=== PATIENT | male | born 1930 | race Caucasian/White ===

== ENCOUNTER 2017-02-27 16:50 | Emergency (ER) | payer MEDICARE, OTHER ==
[2017-02-27 16:58] VITALS: BP 134/89
--- NOTE | 2017-02-27 17:41 | UC ---
Lower Extremity/Ankle HPI - HPI Summary HPI Summary: HAS CALLOUSES, BUNIONS, AND FUNGAL TOENAIL. ONE WEEK AGO DEVELOPED BLOOD BLISTER ON RIGHT GREAT TOE. BLISTER IS CAUSING TENDERNESS. WOULD LIKE PODIATRY REFERRAL LOCALLY FOR CALLUSES AND BUNIONS. TETANUS WAS 3 YRS AGO. . - History of Current Complaint Chief Complaint: UCLowerExtremity Stated Complaint: FOOT COMPLAINT Time Seen by Provider: 02/27/17 16:58 Hx Obtained From: Patient, Family/Spring Bender Onset/Duration: Gradual Onset, Lasting Weeks, Still Present, Worse Since - TWO DAYS Severity Initially: Mild Severity Currently: Mild Aggravating Factor(s): Standing, Ambulation Able to Bear Weight: Yes - Risk Factors Gout Risk Factors: Age Over 40, Male Septic Arthritis Risk Factor: Negative - Allergies/Home Medications Allergies/Adverse Reactions: Allergies Allergy/AdvReac Type Severity Reaction Status Date / Time Sulfa Antibiotics Allergy Hives Verified 02/27/17 16:58 PMH/Surg Hx/FS Hx/Imm Hx Previously Healthy: Yes - Surgical History Surgical History: Yes Surgery Procedure, Year, and Place: Cardiac stents x4. B.L cataract surgery, left leg filter for blood clot. Abdominal aortic aneuryrsm, Umbilical hernia. Prostatectomy. shoulder. appendix - Family History Known Family History: Positive: Cardiac Disease - Social History Occupation: Retired Lives: With Family Alcohol Use: Occasionally Substance Use Type: None Smoking Status (MU): Former Smoker Type: Cigarettes Amount Used/How Often: 1 ppd Length of Time of Smoking/Using Tobacco: 15-20 years Have You Smoked in the Last Year: No When Did the Patient Quit Smoking/Using Tobacco: 15 yrs ago - Immunization History Most Recent Influenza Vaccination: season Review of Systems Constitutional: Negative Skin: Other - BLOOD BLISTER >1WK OLD LEFT LATERAL GREAT TOE Eyes: Negative ENT: Negative Respiratory: Negative Cardiovascular: Negative Gastrointestinal: Negative Genitourinary: Negative Motor: Negative Neurovascular: Negative Musculoskeletal: Negative Neurological: Negative Psychological: Negative All Other Systems Reviewed And Are Negative: Yes Physical Exam Triage Information Reviewed: Yes Appearance: Well-Appearing, No Pain Distress, Well-Nourished Vital Signs: Initial Vital Signs Temp 97.0 F 02/27/17 16:52 Pulse 104 02/27/17 16:52 Resp 18 02/27/17 16:52 BP 134/89 02/27/17 16:52 Pulse Ox 95 02/27/17 16:52 Vital Signs Reviewed: Yes Eye Exam: Normal ENT Exam: Normal Dental Exam: Normal Neck exam: Normal Neck: Positive: Supple Respiratory Exam: Normal Respiratory: Positive: Chest non-tender, Lungs clear, Normal breath sounds, No respiratory distress Cardiovascular Exam: Normal Cardiovascular: Positive: RRR, No Murmur Abdominal Exam: Normal Musculoskeletal Exam: Normal Musculoskeletal: Positive: Strength Intact Neurological Exam: Normal Psychological Exam: Normal Skin: Positive: Other - INDURATED 2CM X 0.5CM BLOOD BLISTER >1WK OLD LEFT LATERAL GREAT TOE Lower Extremity Course/Dx - Differential Dx/Diagnosis Differential Diagnosis/HQI/PQRI: Gout, Sprain, Strain, Other - CALLOUSES, ONYCHOMYCOSIS; CELLULITIS, GOUT. Provider Diagnoses: INDURATED 2CM X 0.5CM BLOOD BLISTER >1WK OLD LEFT LATERAL GREAT TOE Discharge - Discharge Plan Condition: Stable Disposition: HOME Patient Education Materials: Blister (ED), Hematoma (ED) Referrals: Cristino Matias MD [Primary Care Provider] - Chilo Keyes DPM [Doctor of Podiatric Medicine] - Images Feet (Multiple View): 1 - INDURATED 2CM X 0.5CM BLOOD BLISTER >1WK OLD LEFT LATERAL GREAT TOE
--- NOTE | 2017-03-04 08:43 | UC ---
Progress - Progress Note Progress Note: CALL PATIENT. WOUND CX (-). F/U PCP IF WORSE.
== END 2017-02-27 17:43 | disposition home or self-care (01) ==
LOC: UCEAST 16:50
DX: S90.422A Blister (nonthermal), left great toe, initial encounter (principal); X58.XXXA Exposure to other specified factors, initial encounter; Y93.9 Activity, unspecified; Y92.9 Unspecified place or not applicable; Z95.5 Presence of coronary angioplasty implant and graft; Z98.42 Cataract extraction status, left eye; Z98.41 Cataract extraction status, right eye; Z90.79 Acquired absence of other genital organ(s); Z88.2 Allergy status to sulfonamides; Z87.891 Personal history of nicotine dependence
CPT/HCPCS: 10060; 87070; 87077; 87205; 87640; 87641; 99212; G0463

== ENCOUNTER 2018-01-15 12:48 | Emergency (ER) | payer MEDICARE, OTHER ==
[2018-01-15 13:47] VITALS: BP 123/67
--- NOTE | 2018-01-15 15:40 | UC ---
Hand/Wrist HPI - HPI Summary HPI Summary: C/O right hand redness, swelling and warm. [place] 2nd and 3rd knuckles were sore first. - History Of Current Complaint Chief Complaint: UCUpperExtremity Stated Complaint: RT HAND SWELLING Time Seen by Provider: 01/15/18 15:20 Hx Obtained From: Patient Onset/Duration: Sudden Onset, Lasting Weeks - 1, Worse Since - onset Severity Initially: Mild Severity Currently: Mild Pain Intensity: 3 Character Of Pain: Dull, Aching Aggravating Factor(s): Movement Associated Signs And Symptoms: Positive: Swelling, Redness. Negative: Bruising , Fever, Weakness, Numbness/Tingling Related History: Dominant Hand Right - Allergies/Home Medications Allergies/Adverse Reactions: Allergies Allergy/AdvReac Type Severity Reaction Status Date / Time Sulfa (Sulfonamide Allergy Hives Verified 01/15/18 13:48 Antibiotics) Home Medications: Home Medications Budesonide/Formote 80/4.5(NF) [Symbicort 80/4.5 (NF)] 1 puff INH DAILY 01/15/18 [History Confirmed 01/15/18] PMH/Surg Hx/FS Hx/Imm Hx Cardiovascular History: Cardiac Disease, Hypertension - Surgical History Surgical History: Yes Surgery Procedure, Year, and Place: Cardiac stents x4. B.L cataract surgery, left leg filter for blood clot. Abdominal aortic aneuryrsm, Umbilical hernia. Prostatectomy. shoulder. appendix - Family History Known Family History: Positive: Cardiac Disease Negative: Diabetes - Social History Occupation: Retired Lives: With Family Alcohol Use: Occasionally Substance Use Type: None Smoking Status (MU): Former Smoker Type: Cigarettes Amount Used/How Often: 1 ppd Length of Time of Smoking/Using Tobacco: 15-20 years Have You Smoked in the Last Year: No When Did the Patient Quit Smoking/Using Tobacco: 15 yrs ago - Immunization History Most Recent Influenza Vaccination: season Review of Systems Musculoskeletal: Arthralgia - right hand over the MCP's Is Patient Immunocompromised?: No All Other Systems Reviewed And Are Negative: Yes Physical Exam Triage Information Reviewed: Yes Appearance: Well-Appearing, No Pain Distress, Well-Nourished Vital Signs: Initial Vital Signs Temp 98.1 F 01/15/18 13:42 Pulse 70 01/15/18 13:42 Resp 19 07/04/18 13:42 BP 123/67 01/15/18 13:42 Pulse Ox 98 01/15/18 13:42 Vital Signs Reviewed: Yes Eyes: Positive: Conjunctiva Clear Neck exam: Normal Respiratory Exam: Normal Cardiovascular Exam: Normal Musculoskeletal: Positive: 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 Neurological Exam: Normal Psychological Exam: Normal Skin Exam: Normal Hand/Wrist Course/Dx - Differential Dx/Diagnosis Differential Diagnosis/HQI/PQRI: Cellulitis, Contusion, Gout, Infection Provider Diagnoses: Gout right hand. R/O cellulitis Discharge - Sign-Out/Discharge Documenting (check all that apply): Discharge/Admit/Transfer - Discharge Plan Condition: Stable Disposition: HOME Prescriptions: Cephalexin CAP* [Keflex 500 CAP*] 500 mg PO QID #28 cap Colchicine [Mitigare] 0.6 mg PO BID #60 capsule Patient Education Materials: Gout (ED), Colchicine (By mouth), Cellulitis (ED) , Cephalexin (By mouth) Referrals: Cristino Matias MD [Primary Care Provider] - 5 Days (Recheck on the hand.) - Billing Disposition and Condition Condition: STABLE Disposition: Home
== END 2018-01-15 16:00 | disposition home or self-care (01) ==
LOC: UCCORT 12:48
DX: M10.9 Gout, unspecified (principal); Z88.2 Allergy status to sulfonamides; I10 Essential (primary) hypertension; Z87.891 Personal history of nicotine dependence
CPT/HCPCS: 99212; G0463

== ENCOUNTER 2018-12-01 15:05 | Emergency (ER) | payer MEDICARE ==
[2018-12-01 15:45] VITALS: BP 126/65
--- NOTE | 2018-12-01 16:00 | UC ---
Elbow Pain - HPI Summary HPI Summary: 88 yo male awoke a cough of giancarlo ago with left elbow pain It is swollen and warm no remembered injury He is right handed Can't put elbow on arm rest or table without extreme pain - History of Current Complaint Chief Complaint: UCGeneralIllness Stated Complaint: LEFT ELBOW PAIN Time Seen by Provider: 12/01/18 15:46 Hx Obtained From: Patient Onset/Duration: Days Severity Initially: Mild Severity Currently: Mild Pain Intensity: 1 Pain Scale Used: 0-10 Numeric Location Of Pain: Is Discrete @ - olecranon Character: Aching Aggravating Factor(s): Other - touch Alleviating Factor(s): Rest Associated Signs And Symptoms: Positive: Swelling, Redness - Allergies/Home Medications Allergies/Adverse Reactions: Allergies Allergy/AdvReac Type Severity Reaction Status Date / Time Sulfa (Sulfonamide Allergy Hives Verified 12/01/18 15:36 Antibiotics) Home Medications: Home Medications Albuterol HFA INHALER* [Ventolin HFA Inhaler*] 2 puff INH Q4H PRN 12/01/18 [ History Confirmed 12/01/18] Alendronate (NF) [Fosamax (NF)] 70 mg PO Q30D 12/01/18 [History Confirmed ] Allopurinol TAB* [Zyloprim 100 MG TAB*] 100 mg PO DAILY 12/01/18 [History Confirmed 12/01/18] Ascorbic Acid TAB* [Vitamin C TAB*] 1,000 mg PO DAILY 12/01/18 [History Confirmed 12/01/18] Atorvastatin* [Lipitor*] 40 mg PO DAILY 12/01/18 [History Confirmed 12/01/18] Brimonid/Timolol 0.2/0.5%(NF) [Combigan 0.2/0.5% (NF)] 1 drop BOTH EYES BID [History Confirmed 12/01/18] Budesonide/Formote 80/4.5(NF) [Symbicort 80/4.5 (NF)] 2 puff INH BID 12/01/18 [ History Confirmed 12/01/18] Calcium Citrate TAB* [Citracal TAB*] 600 mg PO BID 12/01/18 [History Confirmed 12/01/18] Cholecalciferol TAB* [Vitamin D TAB*] 400 unit PO DAILY 12/01/18 [History Confirmed 12/01/18] Colchicine* [Colcrys*] 0.6 mg PO BID 12/01/18 [History Confirmed 12/01/18] Dorzolamide 2% OPTH (NF) [Trusopt 2% OPTH (NF)] 1 drop BOTH EYES BID 12/01/18 [ History Confirmed 12/01/18] Ferrous Sulfate TAB* 325 mg PO BID 12/01/18 [History Confirmed 12/01/18] Furosemide TAB* [Lasix TAB*] 80 mg PO DAILY 12/01/18 [History Confirmed 12/01/18 ] Levothyroxine TAB* [Synthroid TAB*] 175 mcg PO 0600 12/01/18 [History Confirmed 12/01/18] Lisinopril TAB* [Prinivil TAB*] 20 mg PO DAILY 12/01/18 [History Confirmed 12/01] PARoxetine HCL TAB* [Paxil TAB*] 20 mg PO DAILY 12/01/18 [History Confirmed ] Potassium Chlor TAB* [Klor Con ER TAB*] 20 meq PO BID 12/01/18 [History Confirmed 12/01/18] Selenium (NF) 200 mcg PO DAILY 12/01/18 [History Confirmed 12/01/18] Vitamin THERAPEUTIC TAB* [Theragran TAB*] 1 tab PO DAILY 12/01/18 [History Confirmed 12/01/18] amLODIPine TAB* [Norvasc 5 mg TAB*] 10 mg PO DAILY 12/01/18 [History Confirmed 12/01/18] PMH/Surg Hx/FS Hx/Imm Hx Previously Healthy: Yes Endocrine History: Dyslipidemia Cardiovascular History: Cardiac Disease, Hypertension - Surgical History Surgical History: Yes Surgery Procedure, Year, and Place: Cardiac stents x4. B.L cataract surgery, left leg filter for blood clot. Abdominal aortic aneuryrsm, Umbilical hernia. Prostatectomy. shoulder. appendix - Family History Known Family History: Positive: Cardiac Disease Negative: Diabetes - Social History Alcohol Use: None Substance Use Type: None Smoking Status (MU): Former Smoker Type: Cigarettes Amount Used/How Often: 1 ppd Length of Time of Smoking/Using Tobacco: 15-20 years Have You Smoked in the Last Year: No When Did the Patient Quit Smoking/Using Tobacco: 15 yrs ago - Immunization History Most Recent Influenza Vaccination: season Review of Systems All Other Systems Reviewed And Are Negative: Yes Constitutional: Positive: Negative Skin: Positive: Negative Eyes: Positive: Negative ENT: Positive: Negative Respiratory: Positive: Negative Cardiovascular: Positive: Negative Gastrointestinal: Positive: Negative Genitourinary: Positive: Negative Motor: Positive: Negative Neurovascular: Positive: Negative Musculoskeletal: Positive: Arthralgia - left elbow Neurological: Positive: Negative Psychological: Positive: Negative Physical Exam Triage Information Reviewed: Yes Appearance: Well-Appearing, No Pain Distress, Well-Nourished Vital Signs: Initial Vital Signs Temp 98.5 F 12/01/18 15:32 Pulse 85 12/01/18 15:32 Resp 18 12/01/18 15:32 BP 126/65 12/01/18 15:32 Pulse Ox 98 12/01/18 15:32 Vital Signs Reviewed: Yes Eyes: Positive: Conjunctiva Clear ENT: Negative: Hearing grossly normal - bilat Hearing Aids, Nasal congestion, Nasal drainage, Trismus, Muffled voice Neck: Positive: Supple, Nontender Respiratory: Positive: Lungs clear, Normal breath sounds, No respiratory distress Cardiovascular: Positive: RRR. Negative: No Murmur Musculoskeletal: Positive: Edema @ - over olecranon, warm Neurological: Positive: Alert Psychological Exam: Normal Skin Exam: Normal Diagnostics - Radiology No standard instances Radiology Interpretation Completed By: Radiologist Summary of Radiographic Findings: left ant fat pad Elbow Pain Course/Dx - Differential Dx/Diagnosis Provider Diagnosis: Olecranon bursitis of left elbow Discharge - Sign-Out/Discharge Documenting (check all that apply): Patient Departure All imaging exams completed and their final reports reviewed: Yes - Discharge Plan Condition: Stable Disposition: HOME Prescriptions: Cephalexin CAP* [Keflex CAP*] 500 mg PO QID #28 cap Patient Education Materials: Elbow Bursitis (ED) Referrals: Vinay Martínez MD [Medical Doctor] - As Soon As Possible Additional Instructions: to ER for new or worsening symptoms - Billing Disposition and Condition Condition: STABLE Disposition: Home
== END 2018-12-01 16:53 | disposition home or self-care (01) ==
LOC: UCCORT 15:05
DX: M70.22 Olecranon bursitis, left elbow (principal); E78.5 Hyperlipidemia, unspecified; I10 Essential (primary) hypertension; Z79.899 Other long term (current) drug therapy; Z88.2 Allergy status to sulfonamides; Z87.891 Personal history of nicotine dependence; Z95.5 Presence of coronary angioplasty implant and graft
CPT/HCPCS: 99212; G0463